=== PATIENT | female | born 1985 | race Caucasian/White ===

== ENCOUNTER 2016-10-20 09:19 | Emergency (ER) | payer BC, MEDICAID ==
[~2016-10-20] VITALS: Ht 160 cm; Wt 125.0 kg
[~2016-10-20 09:19] MED LIST: PENI250T PO
[2016-10-20 09:21] VITALS: PULSE 104; RESP 17; TEMP 98; O2SAT 99
[2016-10-20 09:35] VITALS: BP 140/104
[2016-10-20] MEDS ORDERED: KETOROLAC TROMETHAMINE 30 MG/ML (IVP) VIAL IVP ONE (09:45)
[2016-10-20] MEDS ORDERED: SODIUM CHLORIDE 0.9% FLUSH 10 ML FLUSH IV FLUSH PRN (09:45)
--- NOTE | 2016-10-20 10:04 | PD ---
HPI Chief Complaint: Abdominal Pain Time Seen by Provider: 09:46 Travel History International Travel<30 days: No Contact w/Intl Traveler<30days: No Traveled to known affect area: No History of Present Illness HPI Patient's 31-year-old female presenting to emergency evaluation of right lower quadrant abdominal pain. Patient states it started 2 days ago, the pain comes and goes, she rates it a 9 out of 10 and states it aching and throbbing. Patient states pain exacerbated by movement and bending over, it is somewhat relieved with rest. Patient is not taking anything to alleviate the pain. She denies any nausea, vomiting, fever, chills, dysuria, vaginal discharge. Her last menstrual cycle was one and a half weeks ago and she had a bilateral tubal ligation 2009. PFSH Past Medical History Asthma: Yes Blood Disorders: No Anxiety: Yes Cancer: No Cardiovascular Problems: No Diminished Hearing: No Endocrine: No Gastrointestinal Disorders: No Genitourinary: No Immune Disorder: No Musculoskeletal: No Neurologic: No Reproductive: No Integumentary: Yes (MRSA, PSORIASIS) Immunizations Current: Yes Tetanus Vaccination: > 5 Years PNEUMOCCOCAL Vaccine (Year): 2 ?: Not LMP: OCTOBER 07 2016 : 3 Para: 2 : 1 Tubal Ligation: Yes (02/16/10) Past Surgical History Section: Yes (02/16/2010) Oral Surgery: Yes (wisdom teeth) Other Surgery: Yes (NASAL SURGERY) Social History Alcohol Use: No (very seldom) Tobacco Use: Yes (1/2 ppd) Substance Use: No Allergies-Medications (Allergen,Severity, Reaction): Coded Allergies: Bactrim (Verified Allergy, Severe, HIVES, 10/20/16) Clindamycin (Verified Allergy, Severe, HIVES, 10/20/16) Sulfa (Verified Allergy, Severe, RASH, 10/20/16) Reported Meds & Prescriptions Reported Meds & Active Scripts Active Keflex (Cephalexin) 500 Mg Cap 500 Mg PO Q12H 7 Days Tramadol (Tramadol HCl) 50 Mg Tab 50 Mg PO Q6H PRN Review of Systems Except as stated in HPI: all other systems reviewed are Neg HENT: No: Headaches Cardiovascular: No: Chest Pain or Discomfort Respiratory: No: Shortness of Breath Gastrointestinal: Positive: Abdominal Pain, No: Nausea, Vomiting, Diarrhea, Changes in Bowel Habits, Loss of Appetite Genitourinary: No: Dysuria, Discharge, Vaginal Bleeding Physical Exam Narrative GENERAL: Well-developed, well-nourished, alert female. Appears uncomfortable, in no acute distress. SKIN: Warm and dry. HEAD: Atraumatic. Normocephalic. EYES: Pupils equal and round. No scleral icterus. No injection or drainage. ENT: No nasal bleeding or discharge. Mucous membranes pink and moist. NECK: Trachea midline. No JVD. CARDIOVASCULAR: Regular rate and rhythm. RESPIRATORY: No accessory muscle use. Clear to auscultation. Breath sounds equal bilaterally. GASTROINTESTINAL: Abdomen soft, tender to palpation in right lower quadrant and suprapubic region, no rebound, no guarding., nondistended. Hepatic and splenic margins not palpable. Normoactive bowel sounds MUSCULOSKELETAL: Extremities without clubbing, cyanosis, or edema. No obvious deformities. NEUROLOGICAL: Awake and alert. No obvious cranial nerve deficits. Motor grossly within normal limits. Five out of 5 muscle strength in the arms and legs. Normal speech. PSYCHIATRIC: Appropriate mood and affect; insight and judgment normal. Data Data Last Documented VS Vital Signs Date Time Temp Pulse Resp B/P Pulse Ox O2 Delivery O2 Flow Rate FiO2 10/20/16 11:22 70 20 142/69 99 10/20/16 09:21 98.0 Room Air Orders Complete Blood Count With Diff (10/20/16 09:45) Comprehensive Metabolic Panel (10/20/16 09:45) Lipase (10/20/16 09:45) Urinalysis - C+S If Indicated (10/20/16 09:45) Ct Abd/Pel W Iv Contrast(Rout) (10/20/16 09:45) Iv Access Insert/Monitor (10/20/16 09:45) NPO (10/20/16 09:45) Sodium Chloride 0.9% Flush (Ns Flush) (10/20/16 09:45) Ketorolac Inj (Toradol Inj) (10/20/16 09:45) Urine Culture (10/20/16 09:35) Iohexol 350 Inj (Omnipaque 350 Inj) (10/20/16 10:37) Labs Laboratory Tests Test 10/20/16 10/20/16 09:35 09:55 Urine Color YELLOW Urine Turbidity HAZY Urine pH 5.5 Urine Specific [place] 1.015 Urine Protein NEG mg/dL Urine Glucose (UA) NEG mg/dL Urine Ketones NEG mg/dL Urine Occult Blood MOD Urine Nitrite NEG Urine Bilirubin NEG Urine Urobilinogen LESS THAN 2.0 MG/DL Urine Leukocyte Esterase MOD Urine RBC 5 /hpf Urine WBC 13 /hpf Urine Squamous Epithelial 3 /hpf Cells Urine Bacteria RARE /hpf Urine Mucus FEW /lpf Microscopic Urinalysis Comment CULTURE INDICATED White Blood Count 13.5 TH/MM3 Red Blood Count 4.71 MIL/MM3 Hemoglobin 11.2 GM/DL Hematocrit 33.9 % Mean Corpuscular Volume 71.8 FL Mean Corpuscular Hemoglobin 23.7 PG Mean Corpuscular Hemoglobin 33.0 % Concent Red Cell Distribution Width 16.0 % Platelet Count 409 TH/MM3 Mean Platelet Volume 7.3 FL Neutrophils (%) (Auto) 80.6 % Lymphocytes (%) (Auto) 12.7 % Monocytes (%) (Auto) 4.0 % Eosinophils (%) (Auto) 1.9 % Basophils (%) (Auto) 0.8 % Neutrophils # (Auto) 10.9 TH/MM3 Lymphocytes # (Auto) 1.7 TH/MM3 Monocytes # (Auto) 0.5 TH/MM3 Eosinophils # (Auto) 0.3 TH/MM3 Basophils # (Auto) 0.1 TH/MM3 CBC Comment DIFF FINAL Differential Comment Sodium Level 137 MEQ/L Potassium Level 4.1 MEQ/L Chloride Level 105 MEQ/L Carbon Dioxide Level 23.5 MEQ/L Anion Gap 9 MEQ/L Blood Urea Nitrogen 8 MG/DL Creatinine 0.64 MG/DL Estimat Glomerular Filtration 109 ML/MIN Rate Random Glucose 108 MG/DL Calcium Level 8.8 MG/DL Total Bilirubin 0.7 MG/DL Aspartate Amino Transf 57 U/L (AST/SGOT) Alanine Aminotransferase 56 U/L (ALT/SGPT) Alkaline Phosphatase 109 U/L Total Protein 7.3 GM/DL Albumin 3.1 GM/DL Lipase 108 U/L [facility] Medical Decision Making Medical Screen Exam Complete: Yes Emergency Medical Condition: Yes Medical Record Reviewed: Yes Interpretation(s) Vital Signs Date Time Temp Pulse Resp B/P Pulse Ox O2 Delivery O2 Flow Rate FiO2 10/20/16 09:35 140/104 10/20/16 09:21 98.0 104 17 99 Room Air Differential Diagnosis UTI versus diverticulitis versus appendicitis versus ovarian cyst versus ovarian torsion versus other Narrative Course Patient's 31-year-old female that presented to emergency department evaluation of right lower quadrant and suprapubic tenderness. Patient is moderately tender in the right lower quadrant on exam. Her vital signs are stable, she is afebrile. Labs and imaging ordered and pending. Patient is a tubal ligation and is no chance of . With elevated red blood cells, white blood cells, reflex culture pending. CBC with a white count of 13.5 Chemistry with mild transaminitis CT scan abdomen and pelvis shows fatty liver, right ovarian cyst, stable lymph nodes, slight splenomegaly. The elevated white count could be attributed to the splenomegaly. Patient was given a prescription for tramadol as well as Keflex to treat the urinary tract infection. She was advised to avoid alcohol and acetaminophen products as much as possible. She was encouraged to follow-up with her primary doctor, she was encouraged to crease fluid intake and complete full course of antibiotics as prescribed. She was encouraged to return to emergency department for any new or worsening symptoms. She verbalized understanding of these instructions. Patient is stable for discharge. Diagnosis Primary Impression: UTI (urinary tract infection) Qualified Code: N39.0 - Urinary tract infection with hematuria, site unspecified Additional Impressions: Ovarian cyst Fatty (change of) liver, not elsewhere classified Referrals: Primary Care Physician 3 days Patient Instructions: General Instructions, Non-Alcoholic Fatty Liver Disease ( ED), Ovarian Cyst (DC), Urinary Tract Infection in Women (ED) Additional Instructions: Follow-up with her primary doctor Complete full course of antibiotics as prescribed Increase fluid intake Take medications as directed, do not drive or operate machinery taking narcotic pain medication Return to emergency department immediately for any new or worsening symptoms Med/Other Pt SpecificInfo: Prescription(s) given Scripts Cephalexin (Keflex)500 Mg Mcy289 Mg PO Q12H 7 Days Ref 0 Prov:Parisa Rudd 10/20/16 Tramadol 50 Mg Tab50 Mg PO Q6H PRN (PAIN) #10 TAB Ref 0 Prov:Ashley Pierce MD 10/20/16 Disposition: 01 DISCHARGE HOME Condition: Stable Parisa Rudd Oct 20, 2016 10:04
[2016-10-20 10:28] LABS: AUTOMATED NEUTROPHIL # 10.9 TH/MM3 (1.8-7.7); BASOPHIL # 0.1 TH/MM3 (0-0.2); BASOPHIL % 0.8 % (0.0-2.0); EOSINOPHIL # 0.3 TH/MM3 (0-0.4); EOSINOPHIL % 1.9 % (0.0-4.0); HEMATOCRIT 33.9 % (35.0-46.0); HEMO FLAGS DIFF FINAL; LYMPH % 12.7 % (9.0-44.0); LYMPHOCYTE # 1.7 TH/MM3 (1.0-4.8); MEAN CELL VOLUME 71.8 FL (80.0-100.0); MEAN CORPUSCULAR HEMOGLOBIN 23.7 PG (27.0-34.0); NEUT % 80.6 % (16.0-70.0); PLATELET COUNT 409 TH/MM3 (150-450); RED BLOOD COUNT 4.71 MIL/MM3 (4.00-5.30); WHITE BLOOD COUNT 13.5 TH/MM3 (4.0-11.0)
[2016-10-20 10:34] LABS: BACTERIA, URINE RARE /hpf; BLOOD, URINE MOD (NEG); COMMENT (UR) CULTURE INDICATED; CULTURE IF INDICATED CULTURE INDICATED; GLUCOSE,URINE NEG (NEG); KETONE, URINE NEG (NEG); MUCUS URINE FEW /lpf (OCC); NITRITE,URINE NEG (NEG); PH, URINE 5.5 (5.0-8.5); SQUAMOUS EPITHELIAL CELL URINE 3 /hpf (0-5); URINE COLOR YELLOW (YELLW/STRAW)
[2016-10-20] MEDS ORDERED: IOHEXOL 350 MG/ML 10 ML VIAL (for RAD DIAG) IV ONE (10:37)
[2016-10-20 10:45] LABS: ALKALINE PHOSPHATASE 109 U/L (45-117); ALT (GPT) 56 U/L (10-53); TOTAL BILIRUBIN ADULT 0.7 MG/DL (0.2-1.0)
[2016-10-20 10:55] LABS: ANION GAP 9 MEQ/L (5-15); AST (GOT) 57 U/L (15-37); BICARBONATE 23.5 MEQ/L (21.0-32.0); BLOOD UREA NITROGEN 8 MG/DL (7-18); CHLORIDE 105 MEQ/L (98-107); GLOMERULAR FILTRATION RATE 109 ML/MIN (>89); POTASSIUM 4.1 MEQ/L (3.5-5.1); SODIUM (NA) 137 MEQ/L (136-145)
--- NOTE | 2016-10-20 11:15 | RADRPT ---
EXAM DATE/TIME: 10/20/2016 10:26 [facility] COMPARISON: CT ABDOMEN & PELVIS W/O CONTRAST, March 10, 2011, 22:25. INDICATIONS : Right sided lower abdominal pain. IV CONTRAST: 88 cc Omnipaque 350 (iohexol) IV Injection Site: Lt AC Lot: [id number] Exp Date: August 2019 Lot: Exp Date : ORAL CONTRAST: No oral contrast ingested. RADIATION DOSE: 16.92 CTDIvol (mGy) ; Combined studies MEDICAL HISTORY : None SURGICAL HISTORY : Tubal ligation. ENCOUNTER: Initial ACUITY: 1 day PAIN SCALE: 0/10 LOCATION: Right lower quadrant TECHNIQUE: Volumetric scanning of the abdomen and pelvis was performed. Using automated exposure control and ad justment of the mA and/or kV according to patient size, radiation dose was kept as low as reasonably achievable to obtain optimal diagnostic quality images. DICOM format image data is available electro nically for review and comparison. FINDINGS: CT Abdomen: The pancreas, kidneys, adrenals are unremarkable. There is no evidence for any appreciabl e pathological adenopathy, free fluid, or bowel obstruction. The liver is fatty without focal lesion s or technique. There are small lymph nodes within the jimmy hepatis not significantly changed the la rgest one measures 2.3 cm in size benign in appearance. There are also shotty lymph nodes in the retr operitoneum and iliac chains the largest one in the left external iliac chain measures 1.8 cm in size benign appearance not significantly changed. The spleen is enlarged measuring 14.8 cm in craniocauda l dimension without focal lesions for technique. CT pelvis: The right ovary measures 3.4 cm in size with possible cysts within it and there is slight nonspecific fluid within the endometrial canal. CONCLUSION: 1. Significant fatty infiltration of the liver and slight splenomegaly. 2. Possible cysts in the right ovary and slight nonspecific fluid within the endometrial canal. Macie Denney MD on October 20, 2016 at 11:07 Board Certified Radiologist. This report was verified electronically.
[2016-10-20] MEDS ORDERED: TRAM50TA PO (11:18)
[2016-10-20] MEDS ORDERED: CEPH-460 PO (11:21)
[2016-10-20 11:22] VITALS: BP 142/69
== END 2016-10-21 01:20 | disposition home or self-care (01) ==
LOC: NEPD 09:19
DX: N39.0 Urinary tract infection, site not specified (principal); B96.89 Other specified bacterial agents as the cause of diseases classified elsewhere; N83.201 Unspecified ovarian cyst, right side; K76.0 Fatty (change of) liver, not elsewhere classified; F17.210 Nicotine dependence, cigarettes, uncomplicated
CPT/HCPCS: 74177; 80053; 81001; 83690; 85025; 87086; 96374; 99285; J1885; Q9967

== ENCOUNTER 2016-10-23 14:27 | Inpatient (IN) | payer BC ==
[~2016-10-23] VITALS: Ht 160 cm; Wt 130.0 kg
[~2016-10-23 14:27] MED LIST changes: +CEPH-460 PO; +KETOROLAC TROMETHAMINE 60 MG/2 ML (IM) VIAL IM ONE; +LACTATED RINGER'S 1000 ML INJ 1,000 ML IV ONE; +ONDANSETRON HCL 4 MG/2 ML VIAL IV PUSH ONE; -PENI250T PO; +PROPOFOL 200 MG/20 ML AMP IV ONE; +SUGAMMADEX SODIUM 200 MG/2 ML VIAL IV PUSH ONE; +TRAM50TA PO
[2016-10-23 14:29] VITALS: BP 145/89; PULSE 115; RESP 24; TEMP 99.1; O2SAT 98
[2016-10-23 16:00] VITALS: BP 136/77
[2016-10-23] MEDS ORDERED: SODIUM CHLOR 0.9% 1000 ML INJ 1,000 ML IV SCH (16:05)
[2016-10-23] MEDS ORDERED: FLUO10TA PO (16:08)
--- NOTE | 2016-10-23 16:12 | PD ---
HPI Chief Complaint: Abdominal Pain Time Seen by Provider: 15:57 Travel History International Travel<30 days: No Contact w/Intl Traveler<30days: No Traveled to known affect area: No History of Present Illness HPI 31-year-old female complains of low abdominal pain. Patient states that she started having abdominal pain about 5 days ago. Patient was seen in emergency room 3 days ago and had blood tests and CT scan abdomen pelvis done. Patient had mild leukocytosis otherwise CT abdomen pelvis was unremarkable. Patient was discharged home with diagnosis of abdominal pain and UTI. Patient was given prescription for tramadol and Keflex. Patient states that the pain seemed worse this afternoon. Patient states that she has low-grade fever at home. Patient states that she has nausea but no vomiting or diarrhea. Patient started vaginal bleeding since this morning. Patient has history of irregular menstruation period when she was younger. Patient was put on control pill at that time. Patient status post tubal ligation. Patient denies any dysuria or frequency. Patient denies any back pain. On a scale of 1-10 the pain is a 9. PFSH Past Medical History Asthma: Yes Blood Disorders: No Anxiety: Yes Cancer: No Cardiovascular Problems: No Diminished Hearing: No Endocrine: No Gastrointestinal Disorders: No Genitourinary: No Immune Disorder: No Musculoskeletal: No Neurologic: No Reproductive: No Integumentary: Yes (MRSA, PSORIASIS) Immunizations Current: Yes PNEUMOCCOCAL Vaccine (Year): 2 ?: Not LMP: LAST WEEK : 3 Para: 2 : 1 Tubal Ligation: Yes (02/16/10) Past Surgical History Section: Yes (02/16/2010) Oral Surgery: Yes (wisdom teeth) Other Surgery: Yes (NASAL SURGERY) Social History Alcohol Use: No (very seldom) Tobacco Use: Yes (1/2 ppd) Substance Use: No Allergies-Medications (Allergen,Severity, Reaction): Coded Allergies: Bactrim (Verified Allergy, Severe, HIVES, 10/23/16) Clindamycin (Verified Allergy, Severe, HIVES, 10/23/16) Sulfa (Verified Allergy, Severe, RASH, 10/23/16) Reported Meds & Prescriptions Reported Meds & Active Scripts Active Keflex (Cephalexin) 500 Mg Cap 500 Mg PO Q12H 7 Days Tramadol (Tramadol HCl) 50 Mg Tab 50 Mg PO Q6H PRN Reported Fluoxetine (Fluoxetine HCl) 10 Mg Tab 10 Mg PO DAILY Review of Systems General / Constitutional: No: Fever Eyes: No: Visual changes HENT: No: Headaches Cardiovascular: No: Chest Pain or Discomfort Respiratory: No: Shortness of Breath Gastrointestinal: Positive: Nausea, Abdominal Pain Genitourinary: Positive: Vaginal Bleeding, No: Dysuria Musculoskeletal: No: Pain Skin: No Rash Neurologic: No: Weakness Psychiatric: No: Depression Endocrine: No: Polydipsia Hematologic/Lymphatic: No: Easy Bruising Physical Exam Narrative GENERAL: Well-nourished, well-developed patient. SKIN: Focused skin assessment warm/dry. HEAD: Normocephalic. EYES: No scleral icterus. No injection or drainage. NECK: Supple, trachea midline. No JVD or lymphadenopathy. CARDIOVASCULAR: Regular rate and rhythm without murmurs, gallops, or rubs. RESPIRATORY: Breath sounds equal bilaterally. No accessory muscle use. GASTROINTESTINAL: Abdomen soft, nondistended. Patient has moderate tenderness on palpation lower abdomen. Most localized around suprapubic to right lower quadrant of the abdomen. No rebound tenderness. No mass. MUSCULOSKELETAL: No cyanosis, or edema. BACK: Nontender without obvious deformity. No CVA tenderness. Data Data Last Documented VS Vital Signs Date Time Temp Pulse Resp B/P Pulse Ox O2 Delivery O2 Flow Rate FiO2 10/23/16 18:46 96 20 141/76 98 Room Air 10/23/16 14:29 99.1 Orders Beta Hcg (Quant/Titer) (10/23/16 16:05) Complete Blood Count With Diff (10/23/16 16:05) Comprehensive Metabolic Panel (10/23/16 16:05) Lipase (10/23/16 16:05) Prothrombin Time / Inr (Pt) (10/23/16 16:05) Act Partial Throm Time (Ptt) (10/23/16 16:05) Urinalysis - C+S If Indicated (10/23/16 16:05) Ct Abd/Pel W Iv Contrast(Rout) (10/23/16 16:05) Iv Access Insert/Monitor (10/23/16 16:05) Ecg Monitoring (10/23/16 16:05) Oximetry (10/23/16 16:05) Ondansetron Inj (Zofran Inj) (10/23/16 16:15) Sodium Chlor 0.9% 1000 Ml Inj (Ns 1000 M (10/23/16 16:05) Morphine Inj (Morphine Inj) (10/23/16 16:15) Ed Urine Pregnancytest Poc (10/23/16 16:13) Urine Culture (10/23/16 16:50) Iohexol 350 Inj (Omnipaque 350 Inj) (10/23/16 17:45) Morphine Inj (Morphine Inj) (10/23/16 18:30) Piperacil-Tazo 3.375 Gm Premix (Zosyn 3. (10/23/16 19:00) Admit Order (Ed Use Only) (10/23/16 18:59) Labs Laboratory Tests Test 10/23/16 10/23/16 16:10 16:50 White Blood Count 17.5 TH/MM3 Red Blood Count 4.71 MIL/MM3 Hemoglobin 11.0 GM/DL Hematocrit 34.5 % Mean Corpuscular Volume 73.3 FL Mean Corpuscular Hemoglobin 23.3 PG Mean Corpuscular Hemoglobin 31.8 % Concent Red Cell Distribution Width 15.8 % Platelet Count 411 TH/MM3 Mean Platelet Volume 6.7 FL Neutrophils (%) (Auto) 88.3 % Lymphocytes (%) (Auto) 6.4 % Monocytes (%) (Auto) 3.8 % Eosinophils (%) (Auto) 1.2 % Basophils (%) (Auto) 0.3 % Neutrophils # (Auto) 15.5 TH/MM3 Lymphocytes # (Auto) 1.1 TH/MM3 Monocytes # (Auto) 0.7 TH/MM3 Eosinophils # (Auto) 0.2 TH/MM3 Basophils # (Auto) 0.0 TH/MM3 CBC Comment DIFF FINAL Differential Comment Prothrombin Time 10.1 SEC Prothromb Time International 0.9 RATIO Ratio Activated Partial 32.3 SEC Thromboplast Time Sodium Level 139 MEQ/L Potassium Level 3.7 MEQ/L Chloride Level 105 MEQ/L Carbon Dioxide Level 25.1 MEQ/L Anion Gap 9 MEQ/L Blood Urea Nitrogen 8 MG/DL Creatinine 0.79 MG/DL Estimat Glomerular Filtration 85 ML/MIN Rate Random Glucose 103 MG/DL Calcium Level 8.8 MG/DL Total Bilirubin 0.7 MG/DL Aspartate Amino Transf 29 U/L (AST/SGOT) Alanine Aminotransferase 54 U/L (ALT/SGPT) Alkaline Phosphatase 109 U/L Total Protein 7.7 GM/DL Albumin 3.2 GM/DL Lipase 81 U/L Human Chorionic Gonadotropin, LESS THAN 1 Quant MIU/ML Urine Color DARK-YELLOW Urine Turbidity HAZY Urine pH 6.0 Urine Specific [place] 1.032 Urine Protein 30 mg/dL Urine Glucose (UA) NEG mg/dL Urine Ketones NEG mg/dL Urine Occult Blood LARGE Urine Nitrite NEG Urine Bilirubin NEG Urine Urobilinogen 4.0 MG/DL Urine Leukocyte Esterase LARGE Urine RBC /hpf Urine WBC 117 /hpf Urine Squamous Epithelial 8 /hpf Cells Urine Amorphous Sediment RARE Urine Bacteria OCC /hpf Urine Mucus MANY /lpf Microscopic Urinalysis Comment CULTURE INDICATED MDM Medical Decision Making Medical Screen Exam Complete: Yes Emergency Medical Condition: Yes Interpretation(s) Last Impressions Abdomen/Pelvis CT 10/23/16 1605 Signed Impressions: Service Date/Time: Sunday, October 23, 2016 17:43 - CONCLUSION: 1. Acute appendicitis is identified and this abuts the right ovary. Significant inflammatory changes are noted. There is trace fluid in the possibility of perforation is difficult to exclude. 2. Bilateral ovarian cysts. 3. Hepatosplenomegaly and hepatic steatosis. Stu Ashley MD 1847 PM. CBC WBC 17.5. Hemoglobin 11.0 hematocrit 34.5. MCV 73.3. 88 neutrophil. CMP within normal limit. Beta hCG negative. UA positive for WBC and bacteria. Differential Diagnosis Differential diagnosis including colitis, UTI, pyelonephritis, nephrolithiasis, dysmenorrhea. Narrative Course 31-year-old female with low abdominal pain. Normal saline solution 1 25 cc an hour. Morphine 2 mg IV. Zofran 4 mg IV. Repeat morphine 2 mg IV. Zosyn 3.375 g IV given. Diagnosis Primary Impression: Acute appendicitis Qualified Code: K35.80 - Acute appendicitis, unspecified acute appendicitis type Admitting Information Admitting Physician Requests: Admit Vito Meza MD Oct 23, 2016 16:12 Vito Meza MD Oct 23, 2016 16:12
[2016-10-23] MEDS ORDERED: MORPHINE SULFATE 8 MG/ML INJ IV PUSH ONE ×2 (16:15→18:30)
[2016-10-23] MEDS ORDERED: ONDANSETRON HCL 4 MG/2 ML VIAL IVP ONE (16:15)
[2016-10-23 16:25] LABS: AUTOMATED NEUTROPHIL # 15.5 TH/MM3 (1.8-7.7); BASOPHIL % 0.3 % (0.0-2.0); EOSINOPHIL # 0.2 TH/MM3 (0-0.4); EOSINOPHIL % 1.2 % (0.0-4.0); HEMATOCRIT 34.5 % (35.0-46.0); HEMO FLAGS DIFF FINAL; LYMPH % 6.4 % (9.0-44.0); LYMPHOCYTE # 1.1 TH/MM3 (1.0-4.8); MEAN CELL VOLUME 73.3 FL (80.0-100.0); MEAN CORPUSCULAR HEMOGLOBIN 23.3 PG (27.0-34.0); MEAN CORPUSCULAR HGB CONC 31.8 % (32.0-36.0); MONO % 3.8 % (0.0-8.0); NEUT % 88.3 % (16.0-70.0); PLATELET COUNT 411 TH/MM3 (150-450); RED BLOOD COUNT 4.71 MIL/MM3 (4.00-5.30); RED CELL DISTRIBUTION WIDTH 15.8 % (11.6-17.2); WHITE BLOOD COUNT 17.5 TH/MM3 (4.0-11.0)
[2016-10-23 16:31] LABS: APTT (PATIENT) 32.3 SEC (24.3-30.1); INTERNATIONAL NORMALIZED RATIO 0.9 RATIO; PROTHROMBIN TIME - PATIENT 10.1 SEC (9.8-11.6)
[2016-10-23 16:48] LABS: ANION GAP 9 MEQ/L (5-15); AST (GOT) 29 U/L (15-37); BICARBONATE 25.1 MEQ/L (21.0-32.0); BLOOD UREA NITROGEN 8 MG/DL (7-18); CHLORIDE 105 MEQ/L (98-107); GLOMERULAR FILTRATION RATE 85 ML/MIN (>89); POTASSIUM 3.7 MEQ/L (3.5-5.1); SODIUM (NA) 139 MEQ/L (136-145)
[2016-10-23 16:53] LABS: ALKALINE PHOSPHATASE 109 U/L (45-117); ALT (GPT) 54 U/L (10-53); BETA HCG QUANT LESS THAN 1 MIU/ML (0-5); TOTAL BILIRUBIN ADULT 0.7 MG/DL (0.2-1.0)
[2016-10-23 17:23] LABS: BACTERIA, URINE OCC /hpf; BLOOD, URINE LARGE (NEG); COMMENT (UR) CULTURE INDICATED; CULTURE IF INDICATED CULTURE INDICATED; GLUCOSE,URINE NEG (NEG); KETONE, URINE NEG (NEG); MUCUS URINE MANY /lpf (OCC); NITRITE,URINE NEG (NEG); SQUAMOUS EPITHELIAL CELL URINE 8 /hpf (0-5); URINE COLOR DARK-YELLOW (YELLW/STRAW)
[2016-10-23 17:25] VITALS: BP 103/52; PULSE 97; RESP 22; O2SAT 99
[2016-10-23] MEDS ORDERED: IOHEXOL 350 MG/ML 10 ML VIAL (for RAD DIAG) IV ONE (17:45)
--- NOTE | 2016-10-23 18:26 | RADRPT ---
EXAM DATE/TIME: 10/23/2016 17:43 [facility] COMPARISON: CT ABDOMEN & PELVIS W CONTRAST, October 20, 2016, 10:26. INDICATIONS : Abdomen pain. IV CONTRAST: 100 cc Omnipaque 350 (iohexol) IV ORAL CONTRAST: No oral contrast ingested. RADIATION DOSE: 44.86 CTDIvol (mGy) ; High dose protocol; Patient body habitus MEDICAL HISTORY : ovarian cyst. SURGICAL HISTORY : None. ENCOUNTER: Initial ACUITY: 1 day PAIN SCALE: 5/10 LOCATION: Bilateral abdomen. TECHNIQUE: Volumetric scanning of the abdomen and pelvis was performed. Using automated exposure control and ad justment of the mA and/or kV according to patient size, radiation dose was kept as low as reasonably achievable to obtain optimal diagnostic quality images. DICOM format image data is available electro nically for review and comparison. FINDINGS: There is hepatomegaly and hepatic steatosis. There is spleno megaly again seen. Pancreas, adrenals, k idneys are unremarkable. Urinary bladder unremarkable. Uterus is normal in appearance. There is a tin y cyst left ovary measuring 1.4 cm. At the level of the right ovary a 3.1 cm cyst is noted. Arising o ff the base of the cecum is a dilated fluid-filled structure with mucosal enhancement with significan t adjacent inflammatory changes. It has a maximal transverse dimension of 2.9 cm. This is a change fr om the previous study. It abuts the anterior margin of the right ovary. This is felt to represent acu te appendicitis. The possibility of a perforation is difficult to exclude. There is no free air ident ified. Lung bases are clear. Osseous structures are intact. CONCLUSION: 1. Acute appendicitis is identified and this abuts the right ovary. Significant inflammatory changes are noted. There is trace fluid in the possibility of perforation is difficult to exclude. 2. Bilateral ovarian cysts. 3. Hepatosplenomegaly and hepatic steatosis. Stu Ashley MD on October 23, 2016 at 18:21 Board Certified Radiologist. This report was verified electronically.
[2016-10-23 18:46] VITALS: BP_SYST 103; BP_SYST 141; BP_DIAS 52; BP_DIAS 76; PULSE 94; PULSE 96; RESP 20; RESP 22; O2SAT 98; O2SAT 99
[2016-10-23 19:00] VITALS: BP 134/83; PULSE 104; RESP 18; O2SAT 100
[2016-10-23] MEDS ORDERED: PIPERACIL-TAZO 3.375 GM PREMIX 50 ML IV ONE (19:00)
[2016-10-23] MEDS ORDERED: BUPIVACAINE HCL PF 0.5% 30 ML VIAL ONE (19:32)
[2016-10-23] MEDS ORDERED: MIDAZOLAM HCL 2 MG/2 ML VIAL ONE (19:35)
[2016-10-23] MEDS ORDERED: ACETAMINOPHEN 1000 MG/100 ML VIAL IV ONE (19:35)
[2016-10-23] MEDS ORDERED: FAMOTIDINE 20 MG/2 ML VIAL ONE (19:35)
--- NOTE | 2016-10-23 19:53 | MH ---
cc: TONY SANDOVAL M.D., STEVEN G. MD DATE OF ADMISSION 10/23/2016 CHIEF COMPLAINT Appendicitis. HISTORY OF THE PRESENT ILLNESS Ms. Kilpatrick is a pleasant 31-year-old obese female who presented to the emergency department originally on October 20, 2016 with right lower quadrant abdominal pain. At that time she was found to have elevated white count and tenderness in the right lower quadrant on physical examination. Apparently she underwent CT scan of the abdomen and pelvis which was interpreted as unremarkable and she was discharged home with Keflex and diagnosed with a urinary tract infection. She returned to the emergency department today stating the pain had worsened. She was seen and evaluated by Dr. Vito Meza. Dr. Vito Meza worked her up again and the CT scan of the abdomen and pelvis obtained tonight demonstrates acute appendicitis, possible perforation. Surgical consultation was requested. The patient reports nausea. No vomiting. She has had loss of appetite the last several days. She has had low-grade fever. Denies any loose stool or dysuria. Pain is mainly in the right lower quadrant and made worse by movement. She reports her last menstrual period was approximately a week and a half ago. She denies any sexually transmitted diseases and she denies any . PAST MEDICAL HISTORY Includes: 1. Anxiety disorder. 2. Asthma. 3. Psoriasis. PAST SURGICAL HISTORY 1. She has had section. 2. As well as wisdom teeth extraction. 3. And a nasal septum deviation correction. MEDICATIONS She has currently been given a prescription for Keflex and tramadol for her urinary tract infection that she was diagnosed two days ago with. ALLERGIES SHE IS ALLERGIC TO BACTRIM, CLINDAMYCIN AND SULFA WHICH ALL CAUSE HIVES. SOCIAL HISTORY She denies alcohol use. She reports one-half pack per day cigarette use. She lives locally in the area. REVIEW OF SYSTEMS Unremarkable except for what is documented in the history of present illness. PHYSICAL EXAMINATION VITAL SIGNS: Temperature is 99, pulse 100, blood pressure 130/80, respiratory rate 20. GENERAL: This is a morbidly obese white female who appears uncomfortable. HEENT: Pupils equal, round and reactive to light. Sclerae white. Oropharynx is clear and moist. NECK: Supple. No masses. LUNGS: Clear to auscultation bilaterally. CARDIOVASCULAR: S1-S2. No murmur. ABDOMEN: Soft. Obese. Tender in the right lower quadrant with voluntary guarding and rebound. Bowel sounds are active. EXTREMITIES: Free range of motion times four. NEUROLOGIC: Alert and oriented times three. LABORATORY DATA White blood cell count 17. Hemoglobin 11. Platelet count is 411,000. Electrolytes are all within normal limits. Beta hCG is negative. IMAGING CT scan of the abdomen and pelvis demonstrates acute appendicitis, possible perforation. IMPRESSION Acute appendicitis. PLAN Risks and benefits of open and laparoscopic appendectomy were discussed with the patient. She is agreeable to proceed. The operating room was notified and they will bring the patient up immediately. MD LILLY Simental/AJIT /7:43 PM /7:47 PM
[2016-10-23] MEDS ORDERED: KETOROLAC TROMETHAMINE 30 MG/ML (IVP) VIAL IVP PRN (21:00)
[2016-10-23] MEDS ORDERED: NALOXONE HCL 0.4 MG/ML AMP IV PRN (21:00)
[2016-10-23] MEDS ORDERED: diphenhydrAMINE HCL 25 MG CAP PO PRN (21:00)
[2016-10-23] MEDS ORDERED: SODIUM CHLORIDE 0.9% FLUSH 5 ML FLUSH IVF PRN (21:00)
[2016-10-23] MEDS ORDERED: MORPHINE SULFATE 8 MG/ML INJ IV PUSH PRN (21:00)
[2016-10-23] MEDS ORDERED: ACETAMINOPHEN/HYDROcodone 325 MG/5 MG TAB PO PRN (21:00)
[2016-10-23] MEDS ORDERED: Post-op Orders (for Pharmacy) MISC XX ONE (21:00)
[2016-10-23] MEDS ORDERED: ONDANSETRON HCL 4 MG/2 ML VIAL IV PRN (21:00)
[2016-10-23] MEDS ORDERED: DO NOT ADM ANY ANTICOAGULANT DRUGS PRN (22:15)
[2016-10-23] MEDS: SODIUM CHLORIDE 0.9% FLUSH 5 ML FLUSH IVF SCH (22:29)
[2016-10-23] MEDS: CIPROFLOXACIN 500 MG TAB PO SCH (23:32)
[2016-10-23] MEDS: LACTATED RINGER'S 1000 ML INJ 1,000 ML IV SCH (23:33)
[2016-10-24] VITALS: BP 117/65; PULSE 73; RESP 20; TEMP 96.6; O2SAT 96
[2016-10-24] MEDS: ACETAMINOPHEN/HYDROcodone 325 MG/5 MG TAB PO PRN ×3 (02:06→11:17)
[2016-10-24 04:00] VITALS: BP 106/57; PULSE 63; RESP 20; TEMP 97.1; O2SAT 97
[2016-10-24] MEDS: PCA - TOTAL MG MORPHINE DELIVERED PER SHIFT SCH ×2 (05:26→06:52)
[2016-10-24] MEDS: LACTATED RINGER'S 1000 ML INJ 1,000 ML IV SCH ×2 (06:51→06:53)
[2016-10-24] MEDS: CIPROFLOXACIN 500 MG TAB PO SCH (07:54)
[2016-10-24] MEDS: SODIUM CHLORIDE 0.9% FLUSH 5 ML FLUSH IVF SCH (07:54)
[2016-10-24 07:59] VITALS: BP 105/54; PULSE 72; RESP 20; TEMP 96.5; O2SAT 97
[2016-10-24 10:00] VITALS: O2SAT 97
--- NOTE | 2016-10-24 10:45 | MP ---
cc: TONY SANDOVAL M.D. DATE OF SURGERY: 10/23/2016 PREOPERATIVE DIAGNOSIS: Acute appendicitis. POSTOPERATIVE DIAGNOSIS Right tubo-ovarian abscess. PROCEDURE PERFORMED 1. Diagnostic laparoscopy 2. Laparoscopic appendectomy. 3. I&D right tubo-ovarian abscess with drain placement. SURGEON Tony Sandoval MD. ANESTHESIA General endotracheal COMPLICATIONS None. INDICATIONS FOR PROCEDURE: Miss Kilpatrick is a 31-year-old female presented the emergency department with right lower quadrant abdominal pain. She had been to the emergency room two days prior where she had a reported normal. CT of the abdomen and pelvis which only showed a right ovarian cyst. The patient returned to the emergency room with persistent right lower quadrant abdominal pain. She was noted to have a elevated white count. She had a repeat CT scan of the abdomen and pelvis which showed inflammatory process in the right lower quadrant concerning for acute appendicitis. Surgical consultation was requested. The patient was seen, evaluated, found have significant tenderness in the right lower quadrant. She was offered immediate laparoscopy with possible appendectomy and evaluation of the right tube and ovary. She was agreeable to proceed. INTRAOPERATIVE FINDINGS The patient had a purulent fluid in the right lower quadrant with an abscess on the right ovary. She had a large ovarian cyst which was popped. The appendix did go down to the inflammatory process but the appendix itself appeared normal. The tip the appendix was involved in the inflammatory process but overall it appeared normal and we excise it. It may have been involved secondarily as I do not believe it was a primary source of the infection. Details the patient was identified, brought to the operating placed supine on the operating room table. After adequate general tracheal anesthesia achieved the abdomen is prepped and draped standard surgical fashion. Infraumbilical space was anesthetized with 0.25% Marcaine. Infraumbilical incision was made. Dissection was carried down subcutaneous tissues midline fascia. Midline fascia was then incised sharply. Finger was then placed in the peritoneal cavity without difficulty. Blunt balloon trocar was inserted and the abdomen was insufflated with 15 mmHg using CO2 gas. Next two 5 mm trocars were placed in the lower midline under direct vision. Attention was directed to the right lower quadrant where an inflammatory process was noted. There was purulent, green fluid down the right lower quadrant which was suctioned out. We could see the appendix going down toward the inflammatory process and we used a suction cds sales advisor to dissected it out. The appendix came free quite easily and the tip of the appendix was also involved in the inflammatory process did not appear to be the source. The tip itself appeared to be intact. We went ahead and dissected the appendix out. The appendiceal mesentery was taken down harmonic scalpel. The cecal base. The appendix with an Endoloop twice proximally and then divided. Appendix was placed on the Endopouch bag and brought to the infraumbilical port. Appendix was visually inspected and found be of normal size and color in the tip appeared to be intact. Attention was now to redirected to the right lower quadrant. The right ovary was manipulated. When we did this a large amount of pus came forth. This was suctioned and irrigated out. We also noted the ovarian cyst and this was popped and large amount of clear fluid came out. Once we did this no more purulent fluid was identified. Several bleeding points along the ovary were controlled with the harmonic scalpel. The abscess cavity was copiously irrigated out with normal saline solution and was noted be clear. It appeared this was a tubo-ovarian abscess, the infection appeared to be centered on the right ovary itself. Again we irrigated the abdomen and pelvis out with about one liter of warm saline solution. The cecal base was again checked and the Endoloops were intact and tight and no evidence of leakage of stool. The abdominal cavity was then rinsed out one more time and evacuated and the fluid was noted to be clear. A 7-[place] drain was brought in through the 5-mm port site. It was placed into the right lower quadrant adjacent to the appendiceal base as well as adjacent to the right ovary and down into the pelvis behind the uterus. Drain was secured with 3-0 nylon suture. Abdomen was then carefully desufflated. Midline fascia was repaired with 0 Vicryl in [id number] fashion. Skin was closed with 4-0 Vicryl. The patient tolerated suture well as awakened, brought to recovery in stable condition. Tony MD LILLY Sandoval/esther /9:00 PM /10:41 AM
[2016-10-24] MEDS ORDERED: CIPR-9 PO (10:46)
[2016-10-24 12:22] VITALS: BP 117/67; PULSE 68; RESP 20; TEMP 97.9; O2SAT 98
[2016-10-24] MEDS ORDERED: NORC5TAB PO (14:03)
[2016-10-24] MEDS ORDERED: ENOXAPARIN SODIUM 30 MG/0.3 ML SYRINGE SQ SCH (20:07)
== END 2016-10-24 14:33 | disposition home or self-care (01) | DRG 742 ==
LOC: NEPE 14:27 → INTOOBSV 19:01 → NEDA 19:01 → HPAC 19:21 → N05A 22:10 → OBSVTOIN 10-24 10:38
PROVIDERS: ADMIT Surgery Trauma Surgery; ATTEND Surgery Trauma Surgery
PROC: 0U904ZZ Drainage of Right Ovary, Percutaneous Endoscopic Approach (ICD-10-PCS; principal; 2016-10-23 19:35)
PROC: 0DTJ4ZZ Resection of Appendix, Percutaneous Endoscopic Approach (ICD-10-PCS; 2016-10-23 19:35)
DX: N70.93 Salpingitis and oophoritis, unspecified (principal); K35.80 Unspecified acute appendicitis; Z68.43 Body mass index [BMI] 50.0-59.9, adult; E66.01 Morbid (severe) obesity due to excess calories; N39.0 Urinary tract infection, site not specified; F17.210 Nicotine dependence, cigarettes, uncomplicated; F41.9 Anxiety disorder, unspecified; Z98.51 Tubal ligation status
CPT/HCPCS: 74177; 80053; 81001; 83690; 84702; 84703; 85025; 85610; 85730; 87086; 88304; 96361; 96374; 96375; 96376; J0131; J1885; J2250; J2270; J2405; J2543; J3010; J7030; J7120; Q9967

== ENCOUNTER 2017-06-26 05:32 | Observation (INO) | payer BC, MEDICAID ==
[~2017-06-26] VITALS: Ht 160 cm; Wt 129.7 kg
[~2017-06-26 05:32] MED LIST changes: -CEPH-460 PO; -KETOROLAC TROMETHAMINE 60 MG/2 ML (IM) VIAL IM ONE; -LACTATED RINGER'S 1000 ML INJ 1,000 ML IV ONE; +MEGE40TA PO; -ONDANSETRON HCL 4 MG/2 ML VIAL IV PUSH ONE; -PROPOFOL 200 MG/20 ML AMP IV ONE; -SUGAMMADEX SODIUM 200 MG/2 ML VIAL IV PUSH ONE; -TRAM50TA PO
[2017-06-26] MEDS ORDERED: LACTATED RINGER'S 1000 ML IV PRN (06:15)
[2017-06-26] MEDS ORDERED: SODIUM CHLORID 0.9% 500 ML IV PRN (06:15)
[2017-06-26] MEDS ORDERED: POVIDONE IODINE 5% (ANTISEPSIS KIT) 4 APPLICATIONS EACH NARE PRN (06:15)
[2017-06-26] MEDS ORDERED: CHLORHEXIDINE GLUCONATE 2 % 1 PACK (2 CLOTHS) TOPICAL PRN (06:15)
[2017-06-26] MEDS ORDERED: ceFAZolin 2 GM PREMIX 50 ML IV SCH (06:15)
[2017-06-26] MEDS ORDERED: METOPROLOL TARTRATE 25 MG TAB PO PRN (06:15)
[2017-06-26 06:33] LABS: AUTOMATED NEUTROPHIL # 6.4 TH/MM3 (1.8-7.7); BASOPHIL # 0.1 TH/MM3 (0-0.2); BASOPHIL % 0.9 % (0.0-2.0); EOSINOPHIL # 0.4 TH/MM3 (0-0.4); EOSINOPHIL % 3.7 % (0.0-4.0); HEMATOCRIT 24.5 % (35.0-46.0); HEMOGLOBIN 7.4 GM/DL (11.6-15.3); LYMPH % 25.5 % (9.0-44.0); LYMPHOCYTE # 2.5 TH/MM3 (1.0-4.8); MEAN CORPUSCULAR HEMOGLOBIN 16.6 PG (27.0-34.0); MEAN CORPUSCULAR HGB CONC 30.2 % (32.0-36.0); MEAN PLATELET VOLUME 8.1 FL (7.0-11.0); MONO % 4.2 % (0.0-8.0); MONOCYTE # 0.4 TH/MM3 (0-0.9); NEUT % 65.7 % (16.0-70.0); PLATELET COUNT 477 TH/MM3 (150-450); RED BLOOD COUNT 4.46 MIL/MM3 (4.00-5.30); WHITE BLOOD COUNT 9.7 TH/MM3 (4.0-11.0)
[2017-06-26] MEDS ORDERED: BUPIVACAINE/EPINEPHRINE 0.25% PF 10 ML VIAL ONE (06:44)
[2017-06-26] MEDS ORDERED: SUGAMMADEX SODIUM 200 MG/2 ML VIAL IV PUSH ONE (07:17)
[2017-06-26] MEDS ORDERED: ACETAMINOPHEN 1000 MG/100 ML 100 ML IV ONE (07:17)
[2017-06-26] MEDS ORDERED: FAMOTIDINE 20 MG/2 ML VIAL ONE (07:40)
[2017-06-26] MEDS ORDERED: METHYLENE BLUE 10 MG/ML VIAL OTHER SCH (09:00)
[2017-06-26] MEDS ORDERED: DO NOT ADM ANY ANTICOAGULANT DRUGS PRN (09:54)
[2017-06-26] MEDS ORDERED: MIDAZOLAM HCL 2 MG/2 ML VIAL ONE (10:07)
[2017-06-26] MEDS ORDERED: MORPHINE SULFATE 4 MG/ML INJ ONE (10:07)
[2017-06-26] MEDS ORDERED: *morphine SULFATE 4 MG/ML PERIprocedure ONLY ONE ×2 (10:07→10:19)
[2017-06-26] MEDS ORDERED: SODIUM CHLORIDE 0.9% FLUSH 10 ML FLUSH IV FLUSH PRN (10:15)
[2017-06-26] MEDS ORDERED: KETOROLAC TROMETHAMINE 30 MG/ML (IVP) VIAL IVP PRN (10:15)
[2017-06-26] MEDS ORDERED: ONDANSETRON HCL 4 MG/2 ML VIAL IVP PRN (10:15)
[2017-06-26] MEDS ORDERED: diphenhydrAMINE HCL 25 MG CAP PO PRN (10:15)
--- NOTE | 2017-06-26 10:16 | MP ---
cc: Tony Dickson MD DATE OF OPERATION: 06/26/2017 PROCEDURE PERFORMED: Laparoscopic assisted supracervical hysterectomy with a right salpingo-oophorectomy, left salpingectomy and lysis of adhesions. PREOPERATIVE DIAGNOSIS: The patient has dysfunctional uterine bleeding and an enlarged uterus. POSTOPERATIVE DIAGNOSIS: The patient has dysfunctional uterine bleeding and an enlarged uterus. SURGEON: Tony Dickson MD ANESTHESIA: LITTLE Luong. COMPLICATIONS: None. FINDINGS: Large uterus, adhesions of the uterus to the anterior abdominal wall, omental adhesions, small hernia, ventral. Normal ovaries bilaterally with scar tissue adherent to the uterus and the pelvic sidewall. Some omental adhesions to the uterus posteriorly. ANESTHESIA: General. PROCEDURE IN DETAIL: After informed consent, the patient was taken to the operating room where she was placed under general anesthesia and placed in the supine position with her legs in the Yellofins stirrups. The abdomen, perineum, and vagina were prepped and draped in normal sterile fashion. After adequate anesthesia was assured and a time-out was taken, a speculum was placed in the vagina. The cervix was grasped with a single-tooth tenaculum and a HUMI uterine manipulator was placed in place. After the gloves were changed, a 5 mm infraumbilical incision was made, after injecting with 0.25% Marcaine with epinephrine. We entered the abdomen under direct visualization. The upper abdomen was normal. She had omental adhesions from the umbilicus midway down to the uterus on the left side worse than the right. We found a window through the omentum and found a window on the right side where a 5 mm trocar was placed after injecting 0.25% Marcaine with epinephrine in the right lower quadrant. We put the camera in that site using the midline trocar. Using a Harmonic scalpel, we took the omentum down to clear the pelvis. Once we cleared the pelvis, the left lower quadrant was freed from adhesions. A 5 mm trocar was placed in that area. We then proceeded to evaluate the left and right ovary. Both were seen to be normal. The left was adherent to the pelvic sidewall. On the right, the patient had requested removal so we came across the infundibulopelvic ligament on the right side and removed the fallopian tube and ovary on the right and then down the broad ligament to take the round ligament, the broad ligament with the uterine arteries. The left side mesosalpinx was taken with the Harmonic scalpel, leaving the ovary with its blood supply intact. We proceeded down the broad ligament, dissecting out the adhesions and the round ligament until we could create a bladder flap. The bladder flap had to be created through the scar tissue where the uterus was stuck anteriorly. This was dissected with careful dissection with a Harmonic scalpel. Once the bladder flap was created and the cervix was identified, pushing up on the Encarnate uterine manipulator, both uterine arteries had been ligated with the Harmonic scalpel. Good hemostasis was achieved. Estimated blood loss at this point was about 100 mL. We then came across the cervix. There was no bleeding from coming across the cervix and the uterus was amputated from the cervix. A 30 mm suprapubic incision was made, carried sharply down to the fascia through the old scar. We traveled down, opened the fascia, dissected the rectus muscles apart and brought the uterus to that incision. So then we pulled the uterus out of that incision. It was very soft and boggy. The ovary and fallopian tube were still attached to the uterus. The left fallopian tube had been removed previously. All instruments were removed. Good hemostasis had been achieved at all pedicles in her abdomen. Our attention was turned to the uterus. The uterus was removed intact. The fascia was closed with Vicryl suture. The subcutaneous tissue was irrigated. A subcuticular stitch was used to close the incision and the 5 mm trocar sites were closed also. All instruments were removed from the vagina. The patient tolerated the procedure well. She was taken to the recovery room in stable condition. Lap and instrument counts were reported as correct SPECIMEN: Included uterus, fallopian tube on the left and the right fallopian tube and ovary . MD FIOR Ramos/ALAN , 09:40 AM , 10:15 AM
--- NOTE | 2017-06-26 10:18 | PD.OP ---
Operative Report Date of Surgery: Jun 26, 2017 Preoperative Diagnosis: (1) Dysfunctional uterine bleeding Postoperative Diagnosis: (1) Dysfunctional uterine bleeding Procedure: LASH right salpingoophorectomy and left salpingectomy Anesthesia: general Surgeon: Tony Dickson Electric Plater(s): Tony De Souza MD Jun 26, 2017 10:18
[2017-06-26 11:10] VITALS: BP 142/72; PULSE 77; RESP 15; TEMP 97.5; O2SAT 99
[2017-06-26] MEDS ORDERED: oxyCODONE/ACETAMINOPHEN 5 MG/325 MG TAB PO PRN (11:15)
[2017-06-26] MEDS ORDERED: HYDROmorphone HCL PF 2 MG/ML VIAL IV PUSH PRN (11:15)
[2017-06-26] MEDS ORDERED: PROPOFOL 200 MG/20 ML AMP IV ONE (12:00)
[2017-06-26] MEDS ORDERED: GLYCOPYRROLATE 1 MG/5 ML SYRINGE IV PUSH ONE (12:00)
[2017-06-26] MEDS ORDERED: DEXAMETHASONE SOD PHOS 4 MG/ML VIAL IV ONE (12:00)
[2017-06-26] MEDS ORDERED: LIDOCAINE HCL 1% PF 5 ML SYRINGE OTHER ONE (12:00)
[2017-06-26] MEDS ORDERED: ROCURONIUM INJ 50 MG/5 ML SYRINGE IV PUSH ONE (12:00)
[2017-06-26] MEDS ORDERED: ONDANSETRON HCL 4 MG/2 ML VIAL IV ONE (12:00)
[2017-06-26] MEDS ORDERED: NEOSTIGMINE 5 MG/5 ML SYRINGE IV PUSH ONE (12:00)
[2017-06-26] MEDS: IBUPROFEN 600 MG TAB PO PRN ×2 (12:53→20:54)
[2017-06-26] MEDS: oxyCODONE/ACETAMINOPHEN 5 MG/325 MG TAB PO PRN ×3 (12:53→20:53)
[2017-06-26 20:00] VITALS: BP 99/52; PULSE 68; RESP 18; TEMP 97.8; O2SAT 95
[2017-06-26] MEDS ORDERED: SODIUM CHLORIDE 0.9% FLUSH 10 ML FLUSH IV FLUSH SCH (21:00)
[2017-06-27] VITALS: BP 102/45; PULSE 68; RESP 18; TEMP 98.4; O2SAT 97
[2017-06-27] MEDS: IBUPROFEN 600 MG TAB PO PRN ×2 (03:18→09:15)
[2017-06-27] MEDS: oxyCODONE/ACETAMINOPHEN 5 MG/325 MG TAB PO PRN ×2 (03:18→09:12)
[2017-06-27 03:30] VITALS: BP 110/51; PULSE 77; RESP 18; TEMP 98.1; O2SAT 98
[2017-06-27 06:02] LABS: AUTOMATED NEUTROPHIL # 10.1 TH/MM3 (1.8-7.7); BASOPHIL % 0.3 % (0.0-2.0); EOSINOPHIL # 0.1 TH/MM3 (0-0.4); EOSINOPHIL % 0.6 % (0.0-4.0); HEMOGLOBIN 7.1 GM/DL (11.6-15.3); LYMPH % 12.4 % (9.0-44.0); LYMPHOCYTE # 1.5 TH/MM3 (1.0-4.8); MEAN CELL VOLUME 55.9 FL (80.0-100.0); MEAN CORPUSCULAR HEMOGLOBIN 16.5 PG (27.0-34.0); MEAN PLATELET VOLUME 8.2 FL (7.0-11.0); MONO % 4.9 % (0.0-8.0); MONOCYTE # 0.6 TH/MM3 (0-0.9); NEUT % 81.8 % (16.0-70.0); PLATELET COUNT 501 TH/MM3 (150-450); RED BLOOD COUNT 4.29 MIL/MM3 (4.00-5.30); WHITE BLOOD COUNT 12.4 TH/MM3 (4.0-11.0)
[2017-06-27 06:08] LABS: MEAN CORPUSCULAR HGB CONC 29.6 % (32.0-36.0)
[2017-06-27 08:00] VITALS: BP 116/61; PULSE 70; RESP 20; TEMP 97.8; O2SAT 100
--- NOTE | 2017-06-27 09:04 | HHI.OB ---
Subjective Post Operative Day: 1 Remarks doing well ambulating and pain controlled Objective Vitals/I&O Vital Signs Date Time Temp Pulse Resp B/P (MAP) Pulse Ox O2 Delivery O2 Flow Rate FiO2 06/27/17 08:00 97.8 70 20 116/61 (79) 100 06/27/17 03:30 98.1 77 18 110/51 (70) 98 06/27/17 00:00 98.4 68 18 102/45 (64) 97 06/26/17 20:00 97.8 68 18 99/52 (68) 95 06/26/17 11:10 97.5 77 15 142/72 (95) 99 06/26/17 10:53 98.2 80 15 128/83 (98) 98 Nasal Cannula 3 06/26/17 10:30 80 16 131/72 (91) 100 Nasal Cannula 3 06/26/17 10:15 79 14 126/65 (85) 100 Nasal Cannula 3 06/26/17 10:00 86 14 140/73 (95) 100 Nasal Cannula 3 06/26/17 09:55 98.7 95 14 129/80 (96) 100 Nasal Cannula 3 Intake & Output 06/27/17 06/27/17 07:00 19:00 Output Total 700 ml Balance -700 ml Output Urine Total 700 ml Result Diagram: 06/27/17 0445 Objective Remarks GENERAL: Well-nourished, well-developed patient. CARDIOVASCULAR: Regular rate and rhythm without murmurs, gallops, or rubs. RESPIRATORY: Breath sounds equal bilaterally. No accessory muscle use. ABDOMEN/GI: Abdomen soft, non-tender, bowel sounds present. Incision: Clean, dry and intact. GENITOURINARY: Light to moderate bleeding. EXTREMITIES: No cyanosis or edema, non-tender, without signs of DVT. Medications and IVs Current Medications Medications (Trade) Dose Ordered Sig/Tiff Route Start Time Stop Time Status Last Admin Cefazolin Sodium/ Dextrose 50 ml @ 100 mls/hr CLINICAL DOCUMENT IMPROVEMENT EDUCATOR IV 06/26/17 06:15 06/29/17 06:14 06/26/17 07:00 Lactated Ringer's 1,000 ml @ 30 mls/hr Q24H PRN IV 06/26/17 06:15 06/29/17 06:14 06/26/17 06:00 Sodium Chloride 500 ml @ 30 mls/hr [id number] PRN IV 06/26/17 06:15 06/29/17 06:14 (Lopressor) 25 mg CLINICAL DOCUMENT IMPROVEMENT EDUCATOR PRN PO 06/26/17 06:15 06/29/17 06:14 (Betadine 5% Antisepsis Kit) 1 applic CLINICAL DOCUMENT IMPROVEMENT EDUCATOR PRN EACH NARE 06/26/17 06:15 06/29/17 06:14 06/26/17 06:35 (Chlorhexidine 2% Cloth) 3 pack CLINICAL DOCUMENT IMPROVEMENT EDUCATOR PRN TOPICAL 06/26/17 06:15 06/29/17 06:14 06/26/17 05:50 Miscellaneous Information ALL NURSING DEPARTME... UNSCH PRN .XX 06/26/17 09:54 06/27/17 09:53 (NS Flush) 2 ml UNSCH PRN IV FLUSH 06/26/17 10:15 (NS Flush) 2 ml BID IV FLUSH 06/26/17 21:00 (Motrin) 600 mg Q6H PRN PO 06/26/17 11:15 06/27/17 03:18 (Percocet 5-325 Mg) 1 tab Q4H PRN PO 06/26/17 11:15 (Percocet 5-325 Mg) 2 tab Q4H PRN PO 06/26/17 11:15 06/27/17 03:18 (Dilaudid Pf Inj) 1 mg Q4H PRN IV PUSH 06/26/17 11:15 (Benadryl) 25 mg Q6H PRN PO 06/26/17 10:15 (Zofran Inj) 4 mg Q6H PRN IVP 06/26/17 10:15 Assessment/Plan Problem List: (1) Dysfunctional uterine bleeding ICD Codes: N93.8 - Other specified abnormal uterine and vaginal bleeding Discharge Planning S/P LASH ri home with Hgb 7.1 asymptomatic Tony Dickson MD Jun 27, 2017 09:04
[2017-06-27] MEDS ORDERED: OXYC1TAB63 PO (09:05)
--- NOTE | 2017-06-27 09:06 | HHI.DCPOC ---
Discharge Care Plan Diagnosis: (1) Dysfunctional uterine bleeding Report Symptoms to Your Doctor -Temperature above 100.5 degrees -Redness, of incision or excessive or foul smelling drainage -Unusual pain or calf pain -Increased vaginal bleeding -Painful or difficulty urinating -Feelings of extreme sadness or anxiety after 2 weeks Goals to Promote Your Health * To prevent worsening of your condition and complications * To maintain your health at the optimal level Directions to Meet Your Goals Take your medications as prescribed Follow your dietary instruction Follow activity as directed Ensure plenty of rest for recovery Drink fluids for hydration Keep your appointments as scheduled Take your immunizations and boosters as scheduled If your symptoms worsen call your PCP, if no PCP go to Urgent Care Center or Emergency Room Smoking is Dangerous to Your Health. Avoid second hand smoke Call the 24-hour crisis hotline for domestic abuse at oTny Dickson MD Jun 27, 2017 09:06
--- NOTE | 2017-06-27 09:10 | HHI.DS ---
Admission Date Jun 26, 2017 at 10:14 Discharge Date: Jun 27, 2017 Admitting Diagnosis Diagnosis: (1) Dysfunctional uterine bleeding ICD Codes: N93.8 - Other specified abnormal uterine and vaginal bleeding Brief History 32 yo with anemia and bleeding for [facility] Hospital Course Patient had LASH and was DC home POD #1, hgb 7.1 Pt Condition on Discharge: Good Discharge Disposition: Discharge Home Discharge Instructions Activities You Can Perform: Regular-No Restrictions Activities to Avoid: Driving for 24 hrs Follow up Referrals: MILLINERY COPYIST - 2 Weeks @ [facility] with Tony Dickson MD New Medications: Oxycodone HCl/Acetaminophen (Oxycodone-Acetaminophen 5-325) 5 Mg-325 Mg Tablet 1 TAB PO Q4H PRN for PAIN SCALE 1 TO 5, #30 TAB Discontinued Medications: Megestrol (Megestrol) 40 Mg Tab 40 MG PO BID, TAB 0 Refills Tony Dickson MD Jun 27, 2017 09:09
== END 2017-06-27 11:39 | disposition home or self-care (01) ==
LOC: HSDC 05:32 → HSDI 10:14 → H1EA 11:06
PROVIDERS: ADMIT Obstetrics & Gynecology; ATTEND Obstetrics & Gynecology
DX: N93.8 Other specified abnormal uterine and vaginal bleeding (principal); N85.2 Hypertrophy of uterus; K66.0 Peritoneal adhesions (postprocedural) (postinfection); D64.9 Anemia, unspecified; K43.9 Ventral hernia without obstruction or gangrene; N73.6 Female pelvic peritoneal adhesions (postinfective)
CPT/HCPCS: 00840; 49329; 58544; 84703; 85025; 86850; 86900; 86901; 86920; 88307; G0378; J0131; J0690; J1100; J2250; J2270; J2405; J2710; J3010; J7120